=== PATIENT | female | born 1965 | race Caucasian/White ===

== ENCOUNTER 2024-10-12 16:25 | Emergency (ER) | payer BC, SELFPAY ==
[2024-10-12 16:32] VITALS: BP 124/69; PULSE 68; TEMP 36.4; O2SAT 97; BMI 25.2
--- NOTE | 2024-10-12 16:48 | XR_ITS ---
The [address] [address] Patient Name: ALEX NARAYAN MRN: [id number] date: 1965 Sex: F Assigned Patient Location: ER Current Patient Location: ED.MAIN Accession/Order Number: [id number] Exam Date: 10/12/2024 17:53 Report Date: 10/12/2024 17:56 At the request of: DG GONZALEZ MD Procedure: XR hip LT 2V w/ pelvis 2 views left hip a single view pelvis HISTORY: Left hip pain for 4 days. No injury. No comparison Fallopian tube wires. Hernia repair changes. Adequate hips. No AVN. Mild SI and hip degeneration. No acute displaced fracture. XR/XR hip LT 2V w/ pelvis IMPRESSION: Mild left hip degeneration Impression dictated by: Sascha Bryant M.D. 10/12/2024 5:56 PM Dictation Location: [place] [address] Electronically authenticated by: [id number] Y Date: 10/12/2024 17:56
[2024-10-12] MEDS: OXYCODONE HCL/ACETAMINOPHEN 5MG/325MG 1 TAB PO (17:12)
[2024-10-12] MEDS: METHYLPREDNISOLONE SOD SUCC PF 40 MG/ML VIAL IM (17:12)
--- OUTSIDE RECORDS SUMMARY | 2024-10-12 17:58 | XMS_ITS | Encounter Summary ---
Author Organization [facility] Address [address], [address] [place] [address] Care Team Providers Care Electric Meter Repairer Apprentice Name Role Phone Feliciano Franklin DO Primary Care Provider Unavail able Reason for Visit * Reason Comments Medication Refill Encounter Details Date Type Department Care Team (Late st Contact Info) Description 02/14/2021 Refill [facility] [address] [facility] [address] [place] [phone] Octaviano Alvarez DO [address] [facility] [address] [place] [address] Medication Refill Social History Tobacco Use Types Packs/Day Years Used Date Smoking Tobacco: Never Smokeless Tobacco: Never Alcohol Use Standard Drinks/Week Comments Never 0 (1 standard drink = 0.6 oz pur e alcohol) AUDIT-C Answer Date Recorded Frequency of Alcohol Consumption Never 08/20/2018 Average Number of Drinks Not on file 019 Frequency of Binge Drinking Not on file 07/25 Comments No Sex and Gender Information Value Date Recorded Sex Assigned at Not on file Legal Sex Female 2:19 PM EDT Gender Identity Not on file Sexual Orientation Not on file documented as of this encounter Plan of Treatment Not on file documented as of this encounter Visit Diagnoses Not on filedocumented in this encounter Care Teams Electric Meter Repairer Apprentice Relationship Specialty Start Date End Date Feliciano Franklin DO PCP - General Family Medicine 08/20/18 documented as of this encounter
--- OUTSIDE RECORDS SUMMARY | 2024-10-12 17:58 | XMS_ITS | Encounter Summary ---
Author Organization [facility] Address [address], [address] [place] [address] Care Team Providers Care Scallop Raker Name Role Phone Feliciano Franklin DO Primary Care Provider Unavail able Reason for Visit * Reason Comments Medication Refill Encounter Details Date Type Department Care Team (Late st Contact Info) Description 08/14/2020 Refill [facility] [address] [facility] [address] [place] [phone] Octaviano Alvarez DO [address] [facility] [address] [place] [address] Medication Refill Social History Tobacco Use Types [...] on file Sexual Orientation Not on file COVID-19 Exposure Response Date Recorded In the last month, have you been in contact with someone who was confirmed or suspected to have Coronavirus / COVID-19? No / Unsure 08/16/2020 8:25 AM EDT documented as of this encounter Plan of Treatment Not on file documented as of this encounter Visit Diagnoses Not on filedocumented in this encounter Care Teams Scallop Raker Relationship Specialty Start Date End Date Feliciano Franklin DO PCP - General Family Medicine 08/20/18 documented as of this encounter
--- OUTSIDE RECORDS SUMMARY | 2024-10-12 17:58 | XMS_ITS | Clinical Summary ---
Author Organization [facility] Address [address] [place] [address] Care Team Providers Care Plate Hanger Name Role Phone Feliciano Franklin MD Primary Care Provider [phone] Allergies Active Allergy Reactions Criticality Noted Date Comments Canagliflozin 10/14/2022 Other Reaction(s): yeast infection Codeine Hives,Itching Medium 11/16/2013 Other Reaction(s): welts Empagliflozin 10/14/2022 Other Reaction(s): yeast infections Hydrocodone Hives Medium 08/20/2018 Hydrocodone-Acetaminophen Hives Medium 11/16/2013 Other Reaction(s): Other: See Comments, estefany Headache Iodides Anaphylaxis High 12/06/2018 Iodinated Contrast Media Hives 11/16/2013 Other Reaction(s): throat closes up, estefany Lisinopril Cough Low 11/16/2013 Other Reaction(s): Cough, Other (See Comments) cough Semaglutide Unknown 08/13/2022 Other Reaction(s): Unknown Sertraline 10/14/2022 Other Reaction(s): bad/suicidal thoughts Statins Low 06/21/2018 Other Reaction(s): Joint pain, Other (See Comments) Aching muscles and joints Venlafaxine 10/14/2022 Other Reaction(s): headache and dry mouth Medications Trulicity 1.5 MG/0.5ML solution pen-injector as directed Subcutaneous Active ergocalciferol (Vitamin D2) 1.25 MG (31989 UT) capsule Take 1 capsule by mouth 1 (one) time per week. 3 Active Coenzyme Q10 (COQ-10 PO) CoQ-10 Active Red Yeast Rice Extract (RED YEAST RICE PO) Red Yeast Rice Active ascorbic acid (Vitamin C) 100 MG chewable tablet Vitamin C Active Zinc Sulfate (ZINC 15 PO) Zinc Active multivitamin (Theragran) tablet Take 1 tablet by mouth in the morning. Active magnesium oxide (Mag-Ox) 400 mg tablet Take 400 mg by mouth every 12 (twelve) hours. Active Multiple Vitamins-Minera ls (Centrum Silver 50+Women) tablet Take 1 tablet by mouth in the morning. Active glucose blood (True Metrix Blood Glucose Test) test strip 1 (one) time each day at the same time. Active acetaminophen (Tylenol Extra Strength) 500 MG tablet Take 1,000 mg by mouth every 12 (twelve) hours. Active Tirzepatide (Mounjaro) 5 MG/0.5ML solution auto-injector Inject under the skin Active diazePAM (Valium) 5 MG tablet Take 5 mg by mouth at bedtime Active Active Problems Problem Noted Date Diagnosed Date Nontoxic multinodular goiter 10/17/2022 Acquired equinus deformity of right foot 023 Fibrocystic breast changes 08/13/2022 Gastrojejunal ulcer 08/13/2022 Gastrojejunal ulcer, chronic with obstruction Globus sensation 08/13/2022 Hallux valgus (acquired), left foot 08/13/2022 Hallux valgus (acquired), right foot 08/13/2022 Hypertension 08/13/2022 Laryngopharyngeal reflux 08/13/2022 detention current use of insulin 08/13/2022 Mass of left lower extremity 08/13/2022 Nocturia 08/13/2022 Obesity (BMI 30-39.9) 08/13/2022 Obesity 08/13/2022 Oligomenorrhea 08/13/2022 Postinfective urethral stricture in female 08/13 Postmenopausal bleeding 08/13/2022 Pure hypercholesterolemia 08/13/2022 Recurrent UTI 08/13/2022 Kidney stone 08/13/2022 Renal cyst 08/13/2022 Sensorineural hearing loss, bilateral 08/13/2022 Thyroid nodule 08/13/2022 Urge incontinence 08/13/2022 Urinary retention 08/13/2022 Vitamin D deficiency 08/13/2022 Weak urine stream 08/13/2022 Overweight (BMI 25.0-29.9) 07/06/2020 Dysphagia 06/29/2019 S/P gastric bypass 05/09/2019 TYRONE on CPAP 10/01/2018 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 Acquired acanthosis nigricans 08/12/2005 Essential hypertension, benign 08/12/2005 Sleep apnea 08/12/2005 Type 2 diabetes mellitus without complications 0 08/12/2005 Resolved Problems Problem Noted Date Diagnosed Date Resolved Date Diabetes mellitus type 2 in obese 10/01/2018 08/27/2022 Family History Medical History Relation Name Comments Diabetes Father Cervical cancer Mother Diabetes Mother Heart disease Mother Heart failure Mother Thyroid cancer Mother Hypertension Other Relation Name Status Comments Brother 1 Father Mother Other Social History Tobacco Use Types Packs/Day Years Used Date Smoking Tobacco: Never Smokeless Tobacco: Never Tobacco Cessation:Counseling Given: Not Answered Alcohol Use Standard Drinks/Week Comments Not Currently 0 (1 standard drink = 0.6 oz pure alcohol) caffeine intake: 1-2 cups per day Comments No Sex and Gender Information Value Date Recorded Sex Assigned at Female 08/06/2022 8:42 AM EDT Legal Sex Female 6:42 PM EDT Gender Identity Female 08/06/2022 8:42 AM EDT Sexual Orientation Straight 08/06/2022 8: 42 AM EDT Last Filed Vital Signs Vital Sign Reading Time Taken Comments Blood Pressure 124/66 12/14/2023 2:22 PM EDT Pulse 101 12/14/2023 2:22 PM EDT Temperature - - Respiratory Rate 20 12/14/2023 2:22 PM EDT Oxygen Saturation 98% 12/08/2022 12:26 PM EDT Inhaled Oxygen Concentration - - Weight 73 kg (161 lb) 12/14/2023 2:22 PM EDT Height 167.6 cm (5' 6 ) 12/14/2023 2:22 PM EDT Body Mass Index 25.99 12/14/2023 2:22 PM EDT Plan of Treatment Upcoming Encounters Date Type Department Care Team (Late st Contact Info) Description 12/12/2024 10:10 AM EDT Office Visit [facility] [address] [place] [phone] Americo Molina MD [address] [place] [address] Health Maintenance Due Date Last Done Comments CT Colonography 1965 Colonoscopy 1965 Colorectal Cancer Screening 1965 FIT-DNA 1965 FIT 1965 FOBT 1965 Sigmoidoscopy 1965 Mammogram 10/15/2018 10/15/2017, 10/15/2017 Influenza Vaccine (#1) 2024 Pap Smear 08/13/2025 08/13/2022 Cervical Cancer Screening 08/14/2027 HPV/Cotest 08/14/2027 08/13/2022 Procedures Procedure Name Priority Date/Time Associated Diagnosis Comments THINPREP TIS PAP AND HPV MRNA E6/E7 WITH REFLEX TO HPV 16,18/45 Routine 08/13/2022 1:21 PM EDT BI MAMMOGRAM SCREENING BILATERAL Routine 10/15/2017 Encounter for screening for malignant neoplasm of cervix Abdominal distension (gaseous) Oligomenorrhea, unspecified Diffuse cystic mastopathy of right breast Endocrine disorder, unspecified Pelvic and perineal pain Encounter for screening mammogram for malignant neoplasm of breast from Last 3 Months or Most Recently Relevant to Health Maintenance Results * THINPREP TIS PAP AND HPV MRNA E6/E7 WITH REFLEX TO HPV 16,18/45 (08/13/2022 1:21 PM EDT) CLINICAL INFORMATION [facility] Comment:Routine exam LMP [facility] Comment:NONE GIVEN PREV. PAP [facility] Comment:NONE GIVEN PREV. BX [facility] Comment:NONE GIVEN SOURCE [facility] Comment:None given STATEMENT OF ADEQUACY [facility] Comment: Satisfactory for evaluation. Endocervical/transformation zone component present. INTERPRETATION/RESU LT [facility] Comment:Negative for intraep ithelial lesion or malignancy. COMMENT [facility] Comment: This Pap test has been evaluated with computer assisted technology. SNACK BAR COOK [facility] Comment: JUAN ROA(ASCP) CT screening location: [facility] [place], [address] [place] [address], [place] [address]. (ALWAYS MESSAGE) [facility] Comment: EXPLANATORY NOTE: The Pap is a screening test for cervical cancer. It is not a diagnostic test and is subject to false negative and false positive results. It is most reliable when a satisfactory sample, regularly obtained, is submitted with relevant clinical findings and history, and when the Pap result is evaluated along with historic and current clinical information. HPV MRNA E6/E7 Not Detected Not Detected [facility] Comment: Methodology: Field Pipe Lines Supervisor-Mediated Amplification This assay detects E6/E7 viral messenger RNA (mRNA) from 14 high-risk HPV types (16,18,31,33,35,39,45,51,52,56,58,59,66,68). Cervical sources are required for HPV testing. If a vaginal source from a patient who has had a total hysterectomy with removal of cervix was submitted, please contact the testing laboratory for alternative testing options. For additional information, please refer to http://education.Descomplica/faq/CNS742d4 (This link if provided for information/ educational purposes only.) 08/13/2022 1:21 PM EDT 08/14/2022 2:58 AM EDT Narrative Resulting Agency Comment Performing Organization Information Site ID: [id number] Name: [facility] Address: [address] [place] [address], [address] [place] [phone] Director: Toy Santana MD Wes Gracia DO LAB CYTOLOGY ORDERABLES Alyce magdaleno Result [facility] * Bilateral screening mammogram (10/15/2017) Anatomical Region Laterality Modality Breast Bilateral Mammography Impressions 10/15/2017 12:00 AM EDT IMPRESSION: NO MAMMOGRAPHIC EVIDENCE OF MALIGNANCY. ROUTINE FOLLOW-UP IS RECOMMENDED IN ONE YEAR. RESULT CODE: 2 Benign Findings(s) DENSITY CODE: 2 FOLLOW UP: 1YR The false-negative rate of mammography is approximately 10-percent. Management of a palpable abnormality must be based on clinical grounds. Patient was entered into a reminder system with a target due date for the next mammogram. Dictation Location: [place] Transcribed By: VASILIY 10/15/171722 Dictated By: Shin Schmitt MD 10/15/171719 Signed By: <Electronically signed by Shin Schmitt MD in OV> 10/15/17 1723 Narrative 10/15/2017 12:00 AM EDT PERFORMED AT [facility] LOCATION:[place] [id number] Mammography Report Signed Patient: Pema Damon MR#: [id number] : 1965 Acct:[id number] Age/Sex: 52 / F ADM Date: 10/15/17 Loc: [place] Room: Type: REG CLI Attending Dr: Yamil Mccauley MD Ordering Provider: Yamil Mccauley MD Date of Service: 10/15/17 MM/MM screening mammo BI w/CAD: scrn;Breast cancer screening Copies to: Yamil Mccauley MD BILATERAL SCREENING MAMMOGRAMS - FULL FIELD DIGITAL WITH TOMOSYNTHESIS CLINICAL DATA: Screening for malignancy. FINDINGS: Craniocaudal and mediolateral oblique views of both breasts were obtained including Tomosynthesis images using low-dose digital technique. Comparison is made to prior studies on 2009 . This examination was reviewed with the aid of CAD. There is mild amount of scattered fibroglandular densities. Multiple scattered benign calcifications are noted. Mild benign nodularity is shown. There are no dominant masses, typically malignant calcifications or architectural distortion. There has been no significant interval change. Procedure Note CONVERSION, GENERIC - 08/29/2022 PERFORMED AT [facility] LOCATION:[address] [address] Mammography Report Signed Patient: Pema Damon MR#: [id number] : 1965 Acct:[id number] Age/Sex: 52 / F ADM Date: 10/15/17 Loc: [place] Room: Type: REG CLI Attending Dr: Yamil Mccauley MD Ordering Provider: Yamil Mccauley MD Date of Service: 10/15/17 MM/MM screening mammo BI w/CAD: scrn;Breastcancer screening Copies to: Yamil Mccauley MD BILATERAL SCREENING MAMMOGRAMS - FULL FIELD DIGITAL WITH TOMOSYNTHESIS CLINICAL DATA: Screening for malignancy. FINDINGS: Craniocaudal and mediolateral oblique views of both breastswere obtained including Tomosynthesis images using low-dose digital technique. Comparison is madeto prior studies on 2009 . This examination was reviewed with the aid of CAD. There is mild amount of scattered fibroglandular densities. Multiplescattered benign calcifications are noted. Mild benign nodularity is shown. There are nodominant masses, typically malignant calcifications or architectural distortion. There has been nosignificant interval change. IMPRESSION: IMPRESSION: NO MAMMOGRAPHIC EVIDENCE OF MALIGNANCY. ROUTINE FOLLOW-UP IS RECOMMENDED IN ONE YEAR. RESULT CODE: 2 Benign Findings(s) DENSITY CODE: 2 FOLLOW UP: 1YR The false-negative rate of mammography is approximately 10-percent. Management of a palpable abnormality must be based on clinical grounds. Patient was entered into a reminder system with a target due date for thenext mammogram. Dictation Location: [facility] Transcribed By: VASILIY 10/15/17 1723 Dictated By: Shin Schmitt MD 10/15/17 1720 Signed By: <Electronically signed by Shin Schmitt MD in OV> 723 Yamil Mccauley IMG BI PROCEDURES Final Result from Last 3 Months or Most Recently Relevant to Health Maintenance Insurance BCBS Care Teams Plate Hanger Relationship Specialty Start Date End Date Feliciano Franklin MD [address] [place] [id number] PCP - General Family Medicine 08/13/22
--- OUTSIDE RECORDS SUMMARY | 2024-10-12 17:59 | XMS_ITS | Clinical Summary ---
Author Organization [facility] Address [address], [address] [place] [address] Care Team Providers Care Boil Off Machine Operator Cloth Name Role Phone Feliciano Franklin DO Primary Care Provider Unavail able Allergies Active Allergy Reactions Criticality Noted Date Comments Codeine Hives Medium 11/16/2013 Hydrocodone Hives Medium 08/20/2018 Hydrocodone-Acetaminop hen Hives Medium 07/02/2014 Iodides Anaphylaxis High 12/06/2018 Lisinopril Other (See Comments) Low 08/20/2018 cough Statins Other (See Comments) Low 06/21/2018 Aching muscles and joints Medications sucralfate (CARAFATE) 1 GM tablet Take 1 tablet by mouth 4 times daily 120 tablet 3 07/20/2020 Active TRULICITY 1.5 MG/0.5ML SOPN once a week 07/15/2020 Act leonard ondansetron (ZOFRAN) 4 MG tabletIndicatio ns:Nausea Take 1 tablet by mouth every 8 hours as needed for Nausea or Vomiting 30 tablet 2 08/22/2020 Active Acetaminophen (TYLENOL 8 HOUR PO) Take by mouth Active famotidine (PEPCID) 20 MG tablet take 1 tablet by mouth nightly 30 tablet 2 12/31/2020 Active pantoprazole (PROTONIX) 40 MG tablet Take 1 tablet by mouth 2 times daily 180 tablet 04/09/2021 Active Active Problems Patient Care Coordination No te Formatting of this note is d ifferent from the original. Post -op Bariatric Summary Procedure: Gastric bypass Surgeon: Dr. Hernandez HT: 5 Date Weight Labs Ordered Labs Resulted Notes Initial Wt 08-20-18 243 Day of Surgery 05-09-19 247 1 Wk Post-op 05-17-2019 239 Start Bariatric MVI w/iron and calcium 5 Wk Post-op 07-05-2019 89 y 3 Mon Post-op ? ? 6 Mon Post-op ? 9 Mon Post-op ? 1 Year Post-op 04-05-[address] valerio 2 Year Post -op ? ? 3 Year post -op Problem Noted Date Diagnosed Date Overweight (BMI 25.0-29.9) 07/06/2020 Dysphagia 06/29/2019 S/P gastric bypass 05/09/2019 Type 2 diabetes mellitus with obesity 10/01/2018 Overview (11/25/2023): Problem List Diagnosis Replacement Utility 11/24/2023 TYRONE (obstructive sleep apnea) 10/01/2018 Gastrojejunal ulcer Gastrojejunal ulcer, chronic with obstruction Resolved Problems Problem Noted Date Diagnosed Date Resolved Date Essential hypertension 10/01/201807/06 Obesity (BMI 30-39.9) 10/01/20182020 Immunizations Immunization Administration Dates Next Due COVID-19, MODERNA LENORE borde r, Primary or Immunocompromised, (age 12y+), IM, 100 mcg/0.5mL 08/17/2020,07/20/2020 Family History Medical History Relation Name Comments Heart Disease Father Stroke Maternal Grandfather Diabetes Maternal Grandmother Heart Disease Maternal Grandmother Diabetes Mother Heart Disease Mother Other Mother osteoporosis Relation Name Status Comments Father Maternal Grandfather Maternal Grandmother Mother Paternal Grandfather Paternal Grandmother Social History Tobacco Use Types Packs/Day Years [...] on file Sexual Orientation Not on file Last Filed Vital Signs Vital Sign Reading Time Taken Comments Blood Pressure 115/79 04/09/2021 12:45 PM EST Pulse 78 04/09/2021 12:45 PM EST Temperature 36.2 C (97.2 F) 04/09/2021 12:45 PM EST Respiratory Rate 16 04/09/2021 12:45 PM EST Oxygen Saturation 99% 04/09/2021 12:45 PM EST Inhaled Oxygen Concentration - - Weight 62.6 kg (138 lb) 04/09/2021 10:12 AM EST Height 170.2 cm (5' 7 ) 04/09/2021 10:12 AM EST Body Mass Index 21.61 04/09/2021 10:12 AM EST Plan of Treatment Health Maintenance Due Date Last Done Comments Diabetic foot exam 05/25/1975 Depression Screen 1977 HIV screen 1980 Diabetic Alb to Cr ratio (uACR) test 05/25/1983 Diabetic retinal exam 05/25/1983 Hepatitis C screen 05/25/1983 DTaP/Tdap/Td vaccine (1 - Tdap) 1984 Hepatitis B vaccine (1 of 3 - 19+ 3-dose series) 1984 Pap smear 1986 Cervical cancer screen 05/25/1995 HPV (without or with Pap) 05/25/1995 Breast cancer screen 2005 Colonoscopy 2010 Colorectal Cancer Screen 2010 FIT/FOBT: Average risk 2010 Fecal-DNA (Cologuard): Average risk 2010 Sigmoidoscopy/CT colonography 2010 Pneumococcal 50+ years Vaccine (1 of 1 - PCV) 05/25/2015 Shingles vaccine (1 of 2) 05/25/2015 A1C test (Diabetic or Prediabetic) 07/03/2021 04/05/2021, 07/07/2020, 08/24/2018 GFR test (Diabetes, CKD 3-4, OR last GFR 15-59) 04/09/2022 04/09/2021, 04/05/2021, 11/20/2020, Additional history exists COVID-19 Vaccine (3 - 2023- season) 2023 08/17/2020, 07/20/2020 Flu vaccine (#1) 09/23/2024 Lipids 04/05/2026 04/05/2021, 0506/2020, 08/24/2018 Hepatitis A vaccine Aged Out No longe r eligible based on patient's age to complete this topic Hib vaccine Aged Out No longer eligi ble based on patient's age to complete this topic Meningococcal (ACWY) vaccine Aged Out No longer eligible based on patient's age to complete this topic Meningococcal B vaccine Aged Out No l onger eligible based on patient's age to complete this topic Polio vaccine Aged Out No longer elig ible based on patient's age to complete this topic Procedures Procedure Name Priority Date/Time Associated Diagnosis Comments CREATININE W/GFR POINT OF CARE Routine 04/09/2021 10:34 AM EST LIPID PANEL Routine 04/05/2021 S/P gastric bypass HEMOGLOBIN A1C Routine 04/05/2021 S/P gastric bypass from Last 3 Months or Most Recently Relevant to Health Maintenance Results * (ABNORMAL) Creatinine W/GFR Point of Care (04/09/2021 10:34 AM EST) POC Creatinine 0.39(L) 0.51 - 1.19 mg/dL 04/09/2021 10:34 AM EST Check-Cap GFR Comment >60 >60 mL/min 04/09/2021 10:34 AM EST Check-Cap GFR Non- >60 >60 mL/min 04/09/2021 10:34 AM EST Check-Cap GFR Comment 04/09/2021 10:34 AM EST Check-Cap Comment: Average GFR for 50-59 years old: 93 mL/min/1.73sq m Chronic Kidney Disease: <60 mL/min/1.73sq m Kidney failure: <15 mL/min/1.73sq m eGFR calculated using average adult body mass. Additional eGFR calculator available at: http://www.[employer] [facility]/multiple_crcl_2012.htm 04/09/2021 10:3 4 AM EST 04/09/2021 10:37 AM EST Octaviano Alvarez DO POINT OF CARE TEST ORDERAB LES Final Result Check-Cap [facility] [place] [address], [facility] [phone] * Hemoglobin A1C (04/05/2021) Hemoglobin A1C 6.5 % Estimated Avg Glucose 140 BLOOD SPECIMEN / Unknown 04/05/2021 Octaviano Alvarez DO CHEMISTRY ORDERABLES Final Result * Lipid Panel (04/05/2021) Cholesterol, Total 160 mg/dL HDL 46 35 - 70 mg/dL LDL Calculated 102 0 - 160 mg/dL Triglycerides 62 mg/dL Chol/HDL Ratio 3.5 VLDL 12 mg/dL Cholesterol non HDL BLOOD SPECIMEN / Unknown 04/05/2021 Octaviano Alvarez DO CHEMISTRY ORDERABLES Final Result from Last 3 Months or Most Recently Relevant to Health Maintenance Insurance BCBS OUT OF STATE Advance Directives * Full Code (Latest Code Status on File) Date Activated Date Inactivated Comments 11/19/2020 6:47 PM 11/21/2020 8:18 PM * Full Code Date Activated Date Inactivated Comments 11/19/2020 6:47 PM 11/19/2020 6:47 PM * Full Code Date Activated Date Inactivated Comments 05/09/2019 1:33 PM 05/10/2019 1:11 PM Care Teams Boil Off Machine Operator Cloth Relationship Specialty Start Date End Date Feliciano Franklin DO PCP - General Family Medicine 08/20/18
--- OUTSIDE RECORDS SUMMARY | 2024-10-12 17:59 | XMS_ITS | Encounter Summary ---
Author Organization [facility] Address [address], [address] [place] [address] Care Team Providers Care Monument Setter Name Role Phone Feliciano Franklin DO Primary Care Provider Unavail able Reason for Visit * Reason Comments Medication Refill Encounter Details Date Type Department Care Team (Late st Contact Info) Description 05/05/2019 Refill [facility] [address] [facility] [address] [place] [phone] Darrick Hernandez MD [address] [id number] Medication Refill Social History Tobacco Use Types [...] Diagnoses Not on filedocumented in this encounter Additional Health Concerns Infection Onset Date Last Indicated Resolved Time COVID-19 (Rule Out) 07/13/2020 07/13/2020 07/15/19 21 11:00 AM EDT documented as of this encounter Care Teams Monument Setter Relationship Specialty Start Date End Date Feliciano Franklin DO PCP - General Family Medicine 08/20/18 documented as of this encounter
--- NOTE | 2024-10-12 18:43 | ED_ITS ---
HPI HPI - Extremity Injury (Lower) General Chief Complaint: Extremity Injury, Lower Stated Complaint: HIP PAIN ON LEFT SIDE Time Seen by Provider: 10/12/24 16:31 Source: patient Mode of arrival: walk-in History of Present Illness HPI Narrative: The patient is a 59-year-old female with history of osteoarthritis of the right hip is coming to the ER after she noted that her left hip today was worsening, patient mentioned that she had no fall or trauma but she is having a lot of pain in her left hip with limitation of movement due to pain She mentioned that she could not sleep at night because of the pain was severe and she did try [id number] medication with no improvement Related Data Home Medications ?Medication ?Instructions ?Recorded ?Confirmed diazepam 2 mg tablet mg 10/12/24 diazepam 5 mg tablet mg 10/12/24 ergocalciferol (vitamin D2) 1,250 10/12/24 mcg (50,000 unit) capsule fluticasone propionate 50 intranasal 10/12/24 mcg/actuation nasal spray,suspension tirzepatide 5 mg/0.5 mL 5 mg subcut QWEEK 10/12/24 0 10/12/24 subcutaneous pen injector (Mounjaro) vilazodone 40 mg tablet mg 10/12/24 Previous Rx's ?Medication ?Instructions ?Recorded oxycodone-acetaminophen 5 mg-325 1 tab PO Q8H PRN pain 3 days #9 10/12/24 mg tablet (Percocet) tabs Allergies Allergy/AdvReac Type Severity Reaction Status Date / Time ketorolac (From Toradol) Allergy ulcer Verified 10/12/24 17:22 Opioid HPI Opioid Management Most Recent Pain and Opioid Data: Last Pain Scale 8 10/12/24, 16:41 Review of Systems ROS Status of ROS 10 or more systems reviewed and unremark able except as noted in history and below PFSH PFSH Social History Little interest or pleasure in doing things: not at all Feeling down, depressed, or hopeless: not at all Exam Narrative Exam Narrative: Nurses notes and vital signs reviewed and patient is not hypoxic. Left lower extremity examination: There is tenderness upon palpation of the left hip posteriorly. Limitation of movement due to pain and there is no vascular injury detected the patient have full range of movement in the knee and ankle on the left side no signs of trauma no ecchymosis General: Well-appearing and in no apparent distress. Skin: Warm, dry, no pallor noted. No rash. Head: Normocephalic, atraumatic. Cardiovascular: Regular Rate and Rhythm without murmur, gallop or rub. Respiratory: No accessory muscle use or respiratory distress. Lungs are clear to auscultation, no wheezing, rales or rhonchi Chest Wall: no tenderness Back: No midline thoracic or lumbar vertebral tenderness. No CVA tenderness GI: Abdomen is soft, non-distended. Normal bowel sounds. No masses appreciated. No tenderness to palpation. No rebound, guarding, or rigidity noted. Neurological: A&O x4. No cranial nerve dysfunction observed. No truncal ataxia. Moves all extremities. Sensation intact. Psychiatric: Cooperative and interactive. Normal mood and affect. Constitutional Vital Signs, click to edit/add: Last Vital Signs Temp 97.5 F L 10/12/24 16:32 Pulse 68 10/12/24 16:32 Resp 16 10/12/24 16:32 BP 124/69 10/12/24 16:32 Pulse Ox 97 10/12/24 16:32 O2 Del Method Room Air 10/12/24 16:32 Course Vital Signs Vital signs: Vital Signs Temperature 97.5 F L 10/12/24 16:32 Pulse Rate 68 10/12/24 16:32 Respiratory Rate 16 10/12/24 16:32 Blood Pressure 124/69 10/12/24 16:32 Pulse Oximetry 97 10/12/24 16:32 Oxygen Delivery Method Room Air 10/12/24 16:32 Temperature 97.5 F L 10/12/24 16:32 Pulse Rate 68 10/12/24 16:32 Respiratory Rate 16 10/12/24 16:32 Blood Pressure 124/69 10/12/24 16:32 Pulse Oximetry 97 10/12/24 16:32 Oxygen Delivery Method Room Air 10/12/24 16:32 MDM - Extremity Injury (Lower) MDM Narrative Medical decision making narrative: The patient presentation consistent with osteoarthritis but the fact that the pain is waking her up at night was concerning and that why we got an x-ray of the left hip which showed osteoarthritis The patient provide in the ER with Percocet and 1 dose of Solu-Medrol IM The patient was discharged to follow-up with her primary care doctor as well as her vocational services specialist as he already had history of injection in her right hip and she might need that for the left hip as well The patient was able to ambulate with no difficulty with pain medication and she was provided with 3 days of Percocet after reviewing her opiate intake and right now as she does take diazepam at home and she was instructed not to take that with the pain medication at the same time to decrease that could be happening from taking both of them together Patient understand that she has been taking Percocet before with no side effect The patient is to follow up with primary care physician in next 2-3 days or to return to the emergency department should any of the signs or symptoms worsen or new symptoms develop. The patient agrees with the following Diagnosis and Treatment plan and the patient will be discharged home. Discharge Plan Discharge Chief Complaint: Extremity Injury, Lower Clinical Impression: Arthritis, hip Patient Disposition: Home, Self-Care Time of Disposition Decision: 18:44 Condition: Good Prescriptions / Home Meds: New oxycodone-acetaminophen [Percocet] 5-325 mg tablet 1 tab PO Q8H PRN (Reason: pain) 3 Days Qty: 9 0RF No Action ergocalciferol (vitamin D2) 1,250 mcg (50,000 unit) capsule fluticasone propionate 50 mcg/actuation spray,suspension INTRANASAL Mounjaro 5 mg/0.5 mL pen injector 5 mg subcut QWEEK vilazodone 40 mg tablet diazepam 2 mg tablet diazepam 5 mg tablet Print Language: German Instructions: Osteoarthritis (ED) Additional Instructions: The patient to be cautious when taking her diazepam and her pain medication and she never take her pain medication when she is asleep Referrals: CHAVEZ LYON [Primary Care Provider, Family Practice] - 1 week Discharge Date/Time: 10/12/24 19:23
== END 2024-10-12 19:23 | disposition home or self-care (01) ==
PROVIDERS: Emergency Provider Emergency Medicine; PCP Family Medicine
DX: M16.0 Bilateral primary osteoarthritis of hip (principal)
CPT/HCPCS: 73502; 96372; 99284; J1885; J2919

== ENCOUNTER 2024-12-01 13:54 | Emergency (ER) | payer BC, SELFPAY ==
[2024-12-01] VITALS (12 sets, daily range): BP systolic 111–139; BP diastolic 62–92; PULSE 69; TEMP 36.7; O2SAT 95–99; BMI 25.3
--- NOTE | 2024-12-01 14:36 | ED.GENADUL1 ---
HPI HPI - General Adult General Chief complaint: Abdominal Pain Stated complaint: ABDOMINAL/BACK PAIN, VOMITING Time Seen by Provider: 12/01/24 14:06 Source: patient Mode of arrival: walk-in Limitations: no limitations History of Present Illness HPI narrative: Patient is a 59-year-old female that presents to the emergency department with complaints of left upper quadrant pain that has been intermittent for weeks but has become more persistent starting yesterday. It has started to radiate to her epigastric area and around her side to back. She has been vomiting every time she tries to eat and states she has not been able to keep down solids for about a week. She is able to keep down liquids. She denies flatus. Her last BM was yesterday as she has been using MiraLAX as recommended by Dr. Walters. She states that she did have to go home from work as she had a loose BM and her stomach pain was becoming more persistent and uncontrolled with Tylenol. She cannot take NSAIDs secondary to her bleeding ulcer history. She denies any fever, night sweats, or chills. She was on Mounjaro for her diabetes and was placed on this after her gastric bypass surgery. She stopped taking this in the past 2 weeks as she states her glucose has been fairly controlled. She has had a past surgical history of a cholecystectomy, gastric bypass, and a surgery for her bleeding stomach ulcers. This last surgery was with Dr. Alvarez from [facility] in [place], [place]. She has seen Dr. Walters GI, and has had a colonoscopy in the past year. He did tell her that she had a hiatal hernia and he offered her surgery. Related Data Home Medications ?Medication ?Instructions ?Recorded ?Confirmed ergocalciferol (vitamin D2) 1,250 1,250 mcg 10/12/24 mcg (50,000 unit) capsule fluticasone propionate 50 1 spray intranasal 10/12/24 mcg/actuation nasal spray,suspension tirzepatide 5 mg/0.5 mL 5 mg subcut QWEEK 10/12/24 12/01/24 subcutaneous pen injector (Mounjaro) vilazodone 40 mg tablet 40 mg 10/12/24 lamotrigine 100 mg tablet mg 12/01/24 norethindrone acetate 1 mg-ethinyl tab 12/01/24 estradiol 5 mcg tablet (Fyavolv) oxybutynin chloride 10 mg mg PO 12/01/24 tablet,extended release 24 hr Previous Rx's ?Medication ?Instructions ?Recorded magnesium citrate (OneLAX 296 ml PO ONCE #296 mL 12/01/24 Magnesium Citrate oral solution) Allergies Allergy/AdvReac Type Severity Reaction Status Date / Time ketorolac (From Toradol) Allergy ulcer Verified 12/01/24 14:09 Opioid HPI Opioid Management Most Recent Opioid Data: Last Pain Scale 5 Today, 15:34 Last MAR Pain Assessment Today, 14:48 Review of Systems ROS Status of ROS 10 or more systems reviewed and unremarkable except as noted in history and below PFSH PFSH Social History Little interest or pleasure in doing things: not at all Feeling down, depressed, or hopeless: not at all Exam Narrative Exam Narrative: General: No distress, age-appropriate Skin: Warm, dry, no pallor. No rash. Head: Normocephalic, atraumatic. Neck: Supple, non-tender. Eye: Pupils are equal, round and EOMI. No scleral icterus. Ears, Nose, Mouth, and Throat: No nasal mucosal hypertrophy. Oral mucosa is moist, no posterior oropharynx erythema, uvula is mid-line Cardiovascular: Regular Rate and Rhythm without murmur, gallop or rub. Respiratory: No accessory muscle use or respiratory distress. Lungs are clear to auscultation, no wheezing, rales or rhonchi Chest Wall: no tenderness Back: No midline thoracic or lumbar vertebral tenderness. Musculoskeletal: Full ROM of all extremities, no calf or popliteal tenderness GI: Abdomen is soft, non-distended, mildly tender to palpation left upper quadrant. No masses appreciated. No rebound, guarding, or rigidity noted. RUQ well-healed surgical scar, multiple other well-healed surgical scars scattered over the abdomen. Neurological: A&O x4. No cranial nerve dysfunction observed. No truncal ataxia. Moves all extremities. Sensation intact. Psychiatric: Cooperative and interactive. Normal mood and affect. Constitutional Vital Signs, click to edit/add: Last Vital Signs Temp 98.1 F 12/01/24 14:01 Pulse 69 12/01/24 14:01 Resp 16 12/01/24 14:01 BP 115/92 H 12/01/24 16:00 Pulse Ox 96 12/01/24 16:10 O2 Del Method Room Air 12/01/24 14:01 Documenting provider has reviewed patient's vital signs: yes Course Vital Signs Vital signs: Vital Signs Temperature 98.1 F 12/01/24 14:01 Pulse Rate 69 12/01/24 14:01 Respiratory Rate 16 12/01/24 14:01 Blood Pressure 139/86 12/01/24 14:01 Pulse Oximetry 97 12/01/24 14:01 Oxygen Delivery Method Room Air 12/01/24 14:01 Temperature 98.1 F 12/01/24 14:01 Pulse Rate 69 12/01/24 14:01 Respiratory Rate 16 12/01/24 14:01 Blood Pressure 115/92 H 12/01/24 16:00 Pulse Oximetry 96 12/01/24 16:10 Oxygen Delivery Method Room Air 12/01/24 14:01 Medical Decision Making MDM Narrative Medical decision making narrative: This is a 59-year-old female that presents for intermittent left upper quadrant pain for a few weeks. She denies any trauma. Her pain became more persistent to the left upper quadrant yesterday and has started radiating to the epigastric area and also into the back. She has been vomiting with most solid intake for the past week but has been able to keep down liquid calories calories such as protein shakes. She is able to to keep liquids down. She did have a BM yesterday that was loose. She denies flatus. She has had a colonoscopy in the past year and was offered further surgery by Dr. Walters, GI specialist with [facility]. He did note that she has a hiatal hernia. She decided against this and was thinking about seeing her last surgeon, Dr. Alvarez, in [place]. After her gastric bypass surgery she was placed on Mounjaro to control her glucose. She states that her glucose has been fairly controlled and she has stopped taking the injection about 2 weeks ago. PS - Cholecystectomy - Gastric bypass - Surgery for bleeding stomach ulcers (Dr. Alvarez, [facility]) On arrival patient is in no distress, vitals are hemodynamically stable. She appears uncomfortable and is laying on her right side. Patient is afebrile, temperature 98.1. 96% O2 saturations on room air. There is mild tenderness at the left upper quadrant, no rebound tenderness. She is nondistended. There are multiple surgical scars. IV placed. Pepcid, Reglan 10 mg, Benadryl 25 mg ordered. Patient denied Benadryl. 0.5 mg Dilaudid given for pain as well. 1 L normal saline ordered. Given her surgical history, I had high concern for post-bariatric complications, including internal hernia, marginal ulcer, or small bowel obstruction CT abdomen/pelvis with IV contrast ordered. There is no leukocytosis on CBC, WBC is 8.6. BMP within normal limits. Glucose 268, known diabetic, has not been taking Mounjaro for the past 2 weeks. Lipase within normal limits.CT abdomen/pelvis with oral and IV contrast showed no evidence of obstruction, hernia, or perforation, but revealed a moderately fluid-distended stomach and a large amount of stool burden in the colon. Imaging and clinical presentation are most consistent with gastric distension due to delayed gastric emptying, likely multifactorial, with contributing elements including functional bowel dysmotility, constipation, and possible gastroparesis. No acute surgical pathology identified. On reevaluation patient sleeping, arouses easily by voice, states that her abdominal pain has improved with medications. The patient was managed conservatively in the ED with IV fluids, antiemetics, and PPI therapy. She was made NPO, monitored, and showed mild clinical improvement. Magnesium citrate was prescribed on discharge for constipation relief, with instructions to advance diet as tolerated and follow closely with her GI provider for outpatient EGD to assess for marginal ulcer, stricture, or delayed gastric emptying. Differential Diagnosis Differential Diagnosis: Perforated ulcer, SBO, pancreatitis, gastritis, gastroparesis Lab Data Lab results reviewed: Yes I reviewed the patient's lab results Labs: Lab Results 12/01/24 Range/Units 14:18 WBC 8.6 (4.0-11.0) 10^3/uL RBC 4.59 (4.20-5.40) 10^6/uL Hgb 13.1 (12.0-16.0) g/dL Hct 38.6 (36.0-48.0) % MCV 84.1 (81.0-99.0) fL MCH 28.5 (26.7-34.0) pg MCHC 33.9 (29.9-35.2) g/dL RDW 13.4 (11.0-15.0) % Plt Count 262 (150-450) 10^3/uL MPV 10.9 (9.5-13.5) fL Neut % (Auto) 81.0 H (43.0-75.0) % Lymph % (Auto) 11.4 L (20.5-60.0) % [place] % (Auto) 7.3 (1.7-12.0) % Eos % (Auto) 0.0 L (0.9-7.0) % Baso % (Auto) 0.1 L (0.2-2.0) % Neut # (Auto) 7.0 H (1.4-6.5) 10^3/uL Lymph # (Auto) 1.0 L (1.2-3.8) 10^3/uL [place] # (Auto) 0.6 (0.3-0.8) 10^3/uL Eos # (Auto) 0.0 (0.0-0.7) 10^3/uL Baso # (Auto) 0.0 (0.0-0.1) 10^3/uL Abs Immat Gran (auto) 0.02 (0.00-0.03) 10^3/uL Imm/Tot Granulo (auto) 0.2 (0.0-0.5) % Sodium 139 (136-145) mmol/L Potassium 3.8 (3.5-5.1) mmol/L Chloride 103 (98-107) mmol/L Carbon Dioxide 24.9 (21.0-32.0) mmol/L Anion Gap 14.9 BUN 18.0 (7.0-18.0) mg/dL Creatinine 0.60 (0.55-1.02) mg/dL Est GFR ( Amer) >60 (>=60 mL/min/1.73m^2) Est GFR (Non-Af Amer) >60 (>=60 mL/min/1.73m^2) BUN/Creatinine Ratio 30.0 Glucose 268 H (74-106) mg/dL Calcium 9.1 (8.5-10.1) mg/dL Total Bilirubin 0.5 (0.2-1.0) mg/dL AST 14 L (15-37) U/L ALT 23 (14-59) U/L Alkaline Phosphatase 93 (46-116) U/L Total Protein 7.6 (6.4-8.2) g/dL Albumin 3.9 (3.4-5.0) g/dL Globulin 3.7 g/dL Albumin/Globulin Ratio 1.1 Lipase 26.0 (16.0-77.0) U/L Imaging Data CT scan - abdomen: Attestation: I have reviewed the pertinent imaging results. Radiologist's impression: ITS Impressions Abdomen/Pelvis CT 12/01/24 14:38 IMPRESSION: No bowel obstruction or obstructive uropathy. There is a large amount stool within the colon suggesting constipation. Postsurgical changes are noted near the gastroesophageal junction and lesser curvature of the stomach. The gastric lumen is moderately fluid distended. Impression dictated by: Kyaw Pruett M.D. 12/01/2024 3:46 PM Dictation Location: [place] [address] Electronically authenticated by: [id number] Y Date: 12/01/2024 15:46 Discharge Plan Discharge Chief Complaint: Abdominal Pain Clinical Impression: Constipation Patient Disposition: Home, Self-Care Time of Disposition Decision: 16:14 Condition: Good Mode of Transportation: Private Vehicle Prescriptions / Home Meds: New magnesium citrate [OneLAX Magnesium Citrate] Solution 296 ml PO ONCE Qty: 296 0RF No Action oxybutynin chloride 10 mg tablet extended release 24hr PO norethindrone ac-eth estradiol [Fyavolv] 1-5 mg-mcg tablet lamotrigine 100 mg tablet ergocalciferol (vitamin D2) 1,250 mcg (50,000 unit) capsule 1,250 mcg fluticasone propionate 50 mcg/actuation spray,suspension 1 spray INTRANASAL Mounjaro 5 mg/0.5 mL pen injector 5 mg subcut QWEEK vilazodone 40 mg tablet 40 mg Print Language: Kinyarwanda Instructions: Constipation (ED), Acute Abdominal Pain (ED) Additional Instructions: Discharge Plan: Medications: Magnesium Citrate 1 bottle orally once ? for bowel cleanout Resume clear liquid diet, then advance to soft foods as tolerated Activity: Rest, avoid heavy lifting Diet: Start with clear liquids ? full liquids ? bland diet as tolerated Follow-up: GI specialist or Dr Alvarez Consider outpatient EGD if symptoms persist (for evaluation of ulcer or stricture) Return to ER Immediately If: Inability to tolerate liquids (ongoing vomiting or dehydration) Increasing or severe abdominal pain No bowel movement or flatus for >48 hours after magnesium citrate Fever or chills Black or bloody stools Lightheadedness, fainting, or weakness Referrals: CHAVEZ LYON [Primary Care Provider, Family Practice] - 1 week
[2024-12-01 14:37] LABS: Hematocrit 38.6 % (36.0-48.0); Hemoglobin 13.1 g/dL (12.0-16.0); Immature Granulocytes Abs Auto 0.02 10^3/uL (0.00-0.03); Immature Granulocytes Pct Auto 0.2 % (0.0-0.5); Lymphocytes Absolute Auto 1.0 10^3/uL (1.2-3.8); Mean Corpuscular HGB Conc 33.9 g/dL (29.9-35.2); Mean Corpuscular Hemoglobin 28.5 pg (26.7-34.0); Mean Corpuscular Volume 84.1 fL (81.0-99.0); Platelet Count 262 10^3/uL (150-450); Red Blood Count 4.59 10^6/uL (4.20-5.40); White Blood Count 8.6 10^3/uL (4.0-11.0)
[2024-12-01] MEDS: 0.9 % SODIUM CHLORIDE 1,000 ML 1000 ML IV (14:37)
[2024-12-01] MEDS: METOCLOPRAMIDE HCL 10 MG/2 ML VIAL IVP (14:38)
[2024-12-01] MEDS: FAMOTIDINE/PF 20 MG/2 ML VIAL IV (14:38)
--- NOTE | 2024-12-01 14:38 | CT_ITS ---
[address] [address] Patient Name: ALEX NARAYAN MRN: [id number] date: 1965 Sex: F Assigned Patient Location: ED.MAIN Current Patient Location: ED.MAIN Accession/Order Number: [id number] Exam Date: 12/01/2024 15:08 Report Date: 12/01/2024 15:46 At the request of: NEDA HURTADO DO Procedure: CT abdomen pelvis w con CT abdomen pelvis w con 12/01/2024 3:16 PM SIGNS AND SYMPTOMS: ^LUQ abdominal pain \S.br\ TECHNIQUE: Multidetector ct axial images of the abdomen and pelvis were obtained with IV contrast. Multiplanar reformats were performed and reviewed to further define anatomy and possible pathology. CT was performed with one or more of the following dose reduction techniques: Automated exposure control, adjustment of the mA and/or kV according to patient size, or use of iterative reconstruction technique. COMPARISON: 09/27/2020 FINDINGS: Lower Chest: Within normal limits. ABDOMEN: Liver: Within normal limits. Bile Ducts: Normal caliber. Gallbladder: Previously removed Pancreas: Within normal limits. Spleen: Within normal limits. Adrenals: Within normal limits. Kidneys: There is focal renal cortical atrophy on the right. Pelvis: Reproductive Organs: No pelvic masses. Ureters: Within normal limits. Bladder: Within normal limits. Bowel: Normal caliber. There is a normal appendix in the right lower quadrant. Postsurgical changes are noted near the gastroesophageal junction and lesser curvature of the stomach. The gastric lumen is moderately fluid distended. There is a moderate to large stool within the colon suggesting constipation. No bowel obstruction. Mesenteric Lymph Nodes: No enlarged mesenteric lymph nodes. Peritoneum: No ascites or free air, no fluid collection. Vessels: Atherosclerotic changes are noted in the abdominal aorta and its branches. Retroperitoneum: Within normal limits. Abdominal Wall: There is evidence of prior hernia repair. Bones: Degenerative changes are noted in the thoracolumbar spine. Degenerative changes are noted in the hips and sacroiliac joints. CT/CT abdomen pelvis w con IMPRESSION: No bowel obstruction or obstructive uropathy. There is a large amount stool within the colon suggesting constipation. Postsurgical changes are noted near the gastroesophageal junction and lesser curvature of the stomach. The gastric lumen is moderately fluid distended. Impression dictated by: Kyaw Pruett M.D. 12/01/2024 3:46 PM Dictation Location: [place] [address] Electronically authenticated by: [id number] Y Date: 12/01/2024 15:46
[2024-12-01 14:42] LABS: Lipase 26.0 U/L (16.0-77.0)
[2024-12-01 14:48] LABS: Alanine Aminotransferase 23 U/L (14-59); Albumin Globulin Ratio 1.1; Albumin Level 3.9 g/dL (3.4-5.0); Alkaline Phosphatase 93 U/L (46-116); Anion Gap 14.9; Aspartate Amino Transferase 14 U/L (15-37); Blood Urea Nitrogen 18.0 mg/dL (7.0-18.0); Calcium 9.1 mg/dL (8.5-10.1); Carbon Dioxide 24.9 mmol/L (21.0-32.0); Chloride 103 mmol/L (98-107); Estimated GFR (African America >60 (>=60 mL/min/1.73m^2); Estimated GFR (Non-African Ame >60 (>=60 mL/min/1.73m^2); Globulin 3.7 g/dL; Glucose 268 mg/dL (74-106); Potassium 3.8 mmol/L (3.5-5.1); Sodium 139 mmol/L (136-145); Total Protein 7.6 g/dL (6.4-8.2)
[2024-12-01] MEDS: HYDROMORPHONE HCL 0.5 MG/0.5 ML SYRINGE IV (14:48)
--- NOTE | 2024-12-01 15:06 | PC.NURSE ---
patient report given to RANDI Lou at this time
== END 2024-12-01 16:28 | disposition home or self-care (01) ==
PROVIDERS: Emergency Provider Student in an Organized Health Care Education/Training Program; PCP Family Medicine
DX: K59.00 Constipation, unspecified (principal); Z98.84 Bariatric surgery status; E11.9 Type 2 diabetes mellitus without complications; Z90.49 Acquired absence of other specified parts of digestive tract
CPT/HCPCS: 36415; 74177; 80053; 83690; 85025; 96361; 96374; 96375; 99285; J1171; J2765; J3490; Q9967